=== PATIENT | male | born 1965 | race Hispanic/Latino ===

== ENCOUNTER → 2018-06-25 | Outpatient (CLI) | payer OTHER, MEDICARE ==
[~2018-06-25] VITALS: Ht 167.6 cm; Wt 128.4 kg
[~2018-06-25] MED LIST: AEC81 PO; ATOR40TA71 PO; GABA-318 PO; HYDR-3422 PO; OMEP40CA37 PO; PRAZ1CAP5 PO; QUET100T PO; REGADENOSON 0.4 MG/5 ML PF SYG IVP SCH; TRAM50TA4 PO
== END | disposition home or self-care (01) ==
LOC: SHCH 07:59
PROVIDERS: ATTEND Internal Medicine Cardiovascular Disease
DX: I25.119 Atherosclerotic heart disease of native coronary artery with unspecified angina pectoris (principal); M19.212 Secondary osteoarthritis, left shoulder; M19.211 Secondary osteoarthritis, right shoulder; M19.012 Primary osteoarthritis, left shoulder; M19.011 Primary osteoarthritis, right shoulder; F32.9 Major depressive disorder, single episode, unspecified; I10 Essential (primary) hypertension; E78.5 Hyperlipidemia, unspecified; E11.40 Type 2 diabetes mellitus with diabetic neuropathy, unspecified
CPT/HCPCS: 78452; 93017; 96374; A9500 ×2; J2785